=== PATIENT | male | born 1980 | race Caucasian/White ===

== ENCOUNTER 2018-05-04 12:43 | Emergency (ER) | payer OTHER, MEDICAID, SELFPAY ==
[2018-05-04 12:45] VITALS: BP 134/66; PULSE 183; RESP 32; O2SAT 94
--- NOTE | 2018-05-04 12:59 | ED.ARRPALP ---
HPI - Arrhythmia/Palpitations General Chief Complaint: Arrhythmia/Palpitations Stated Complaint: HARD TIME BREATHING Time Seen by Provider: 05/04/18 12:59 Source: patient Mode of arrival: ambulatory Limitations: no limitations History of Present Illness HPI narrative: 38-year-old male with history of Uitjt-Zfkbywzwe-Nnisq status post ablation presents to the emergency department complaining of shortness of breath for the past few days. He has had a few episodes of being quite dizzy but denies syncope. He denies any chest pain. He takes no medications status post ablation but admits he did not followup much after the procedure which was 2 years ago at [facility] complaint: rapid heart beat and heart racing Onset (ago): day(s) Duration: constant Severity: moderate Context: occurred during rest Arrhythmia history: history of ablation Associated symptoms: shortness of breath and near-syncope Related Data Previous Rx's Medication Instructions Recorded metoprolol tartrate 50 mg PO BID #60 tab 05/04/18 Allergies Allergy/AdvReac Type Severity Reaction Status Date / Time No Known Drug Allergies Allergy Verified 05/04/18 13:55 Review of Systems Review of Systems All systems reviewed & are unremarkable except as noted in HPI and below Constitutional Denies chills, Denies fever(s), Denies lethargy and Denies weakness Eyes Denies change in vision, Denies eye discharge, Denies irritation and Denies loss of vision ENT Ears, Nose, Mouth, and Throat: Denies change in voice, Denies neck pain and Denies sore throat Cardiovascular Denies chest pain, Denies irregular heart rhythm, Denies lightheadedness, Denies palpitations, Reports dyspnea, Denies dyspnea on exertion and Denies orthopnea Respiratory Denies cough, Reports dyspnea, Denies dyspnea on exertion and Denies wheezing Gastrointestinal Gastrointestinal: Denies abdominal pain, Denies change in bowel habits, Denies diarrhea, Denies nausea and Denies vomiting Genitourinary Denies hematuria, Denies flank pain, Denies urinary incontinence and Denies urinary urgency Musculoskeletal Denies neck pain Integumentary/Breasts Denies pruritus, Denies erythema, Denies rash and Denies wounds Neurologic Denies confusion, Denies loss of vision and Denies weakness Psychiatric Denies anxiety, Denies confusion, Denies depression, Denies homicidal ideation and Denies suicidal ideation Endocrine Denies palpitations Hematologic/Lymphatic Denies easy bruising Allergic/Immunologic Denies wheezing PFSH Social History Smoking Status: Current every day smoker Exam Narrative Exam Narrative: 38-year-old male in obvious stress Initial Vital Signs Initial Vital Signs: Vital Signs Pulse Rate 183 H 05/04/18 12:45 Respiratory Rate 32 H 05/04/18 12:45 Blood Pressure 134/66 H 05/04/18 12:45 Pulse Oximetry 94 05/04/18 12:45 Const General: cooperative, well developed and acute distress Nutritional Appearance: well nourished Orientation: alert, awake, oriented x3 and not confused HENMT Head: normocephalic and atraumatic Ears: external ears normal and TM's normal bilaterally Nose: external nose normal and No nasal discharge Face and sinus: sinuses nontender, face symmetric, no sinus tenderness and No dry mucous membranes Mouth: oral mucosae normal and moist mucous membranes Teeth and gingiva: dentition normal Throat: tonsils normal and uvula midline Neck Neck: normal visual inspection, trachea midline, No lymphadenopathy, No midline deformity and No JVD Lymphatic: No lymphedema Chest Chest: normal inspection of the chest Resp Effort & Inspection: normal respiratory effort, able to speak in complete sentences, no respiratory distress and no use of accessory muscles Auscultation: clear to auscultation bilaterally, no rales, no rhonchi and no wheezes Cardio Rate: tachycardic Rhythm: regular rhythm GI Inspection: non-distended Palpation: soft, no hepatosplenomegaly, No guarding, No pulsatile mass and No tender Auscultation: normal bowel sounds Skin General: no rashes or lesions noted, No jaundice and No petechiae Extrem General: full ROM, no clubbing, cyanosis or edema, no pedal edema and no calf tenderness Course Orders Ordered: ED Orders 05/04/18 13:00 XR chest 1V Stat EKG-12 Lead Stat 05/04/18 13:36 Basic Metabolic Panel Stat Complete Blood Count AUTO DIFF Stat Magnesium Stat Thyroid Stimulating Hormone Stat Troponin with CK Cardiac Panel Stat Discontinued Medications Amiodarone HCl/Dextrose (Nexterone) 150 mg in 100 mls @ 600 mls/hr IV NOW ONE; Protocol Stop: 05/04/18 13:11 Last Infusion: 05/04/18 13:55 Dose: 0 mls/hr Admin: 05/04/18 13:41 Dose: 600 mls/hr Sodium Chloride (Normal Saline 0.9%) 1,000 mls @ 150 mls/hr IV CONT MARVA Last Infusion: 05/04/18 16:00 Dose: 150 mls/hr Admin: 05/04/18 13:41 Dose: 150 mls/hr Metoprolol Tartrate (Lopressor) 25 mg PO NOW ONE Stop: 05/04/18 15:29 Last Admin: 05/04/18 15:37 Dose: 25 mg Reevaluation(s) Reevaluation #1: Patient initially taken into room 4 and connected to a monitor, I was immediately called to the bedside and requested patient be transferred to room 1 and connected to monitoring and evaluation advisor and pads. Amiodarone 150 mg was administered, modified Valsalva maneuver performed with amiodarone going patient had cardioversion to a sinus rhythm in the 110s to 120s and was completely asymptomatic at this point Consultations Consultation #1: Called to on-call Cardiology at [facility] whom was able to check his records and consult with the sanitary napkin machine tender of record from the ablation. They recommend initiation of metoprolol 25 mg p.o. b.i.d. and close follow-up with instructions to return for recurrent symptoms Vital Signs - 8 hr 05/04/18 12:45 05/04/18 14:11 05/04/18 15:00 Pulse Rate 183 H 76 115 H Respiratory Rate 32 H 21 18 Blood Pressure 134/66 H Blood Pressure [Right Arm] 117/69 112/60 Pulse Oximetry 94 100 99 05/04/18 15:30 Pulse Rate 113 H Respiratory Rate 18 Blood Pressure Blood Pressure [Right Arm] 132/82 H Pulse Oximetry 98 MDM - Arrhythmia/Palpitations Lab Data Result diagrams: 05/04/18 13:36 05/04/18 13:36 Lab Results 05/04/18 05/04/18 05/04/18 Range/Units 13:36 13:36 13:36 WBC 15.7 H (4.5-11.0) X10^3/uL RBC 5.00 (4.5-5.9) X10^6/uL Hgb 14.5 (13.5-17.5) g/dL Hct 43.1 (41-53) % MCV 86.2 (80-100) fL MCH 29.0 (26-34) PG MCHC 33.6 (30-36) % RDW 13.4 (11.6-14.8) % Plt Count 291 (150-400) X10^3/uL Neut % (Auto) 75.4 H (50-75) % Lymph % (Auto) 16.6 L (25-40) % Isabella % (Auto) 6.4 (3-14) % Eos % (Auto) 0.5 L (2-4) % Baso % (Auto) 1.1 (0-2) % Neut # (Auto) 87277 H (1178-7787) /uL Sodium 140 (137-145) mmol/L Potassium 4.1 (3.4-5.1) mmol/L Chloride 102 (98-107) mmol/L Carbon Dioxide 28 (22-32) mmol/L BUN 19 (9-20) mg/dL Creatinine 1.10 (0.66-1.25) mg/dL Estimated GFR > 60.0 (>60) mL/min BUN/Creatinine Ratio 17.3 (6-22) Glucose 114 H (70-100) mg/dL Calcium 8.7 (8.4-10.2) mg/dL Magnesium 1.8 (1.6-2.3) mg/dL Total Creatine Kinase 56 (55-170) U/L Troponin I < 0.012 (0.01-0.034) ng/mL TSH 1.60 (0.47-4.68) uIU/mL Imaging Data Chest x-ray: Attestation: I personally reviewed and interpreted this imaging study as follows: Radiologist's impression: PROCEDURE: XR CHEST 1V INDICATIONS: CP, SOB, palpitations, hx WPW TECHNIQUE: One view of the chest was acquired. COMPARISON: [facility], , XR CHEST 1 VIEW, 09/27/2017, 17:43. FINDINGS: Surgical changes and devices: None. Lungs and pleura: No pleural effusions or pneumothorax. Lungs are clear. Mediastinum: Mediastinal contours appear normal. Heart size is normal. Bones and chest wall: No suspicious bony lesions. Overlying soft tissues appear unremarkable. IMPRESSION: No acute cardiopulmonary disease process. Dictated by: Mandi Mckee MD, PhD on 05/04/2018 at 13:13 Approved by: Mandi Mckee MD, PhD on 05/04/2018 at 13:14 Discharge Plan Departure Patient Disposition: Home, Self-Care Clinical Impression: Xwsjx-Rhrafceqb-Dzywl (WPW) pattern Discharge Date/Time: 05/04/18 16:04 Interventions: ED Discharge Assessment Last Done: 05/04/18 16:01 Instructions: DI for Qdjtf-Jtlxzwkqo-Tksvn Syndrome Activity Restrictions/Additional Instructions: *You have been diagnosed with [ Lftas-Bmbgffjnf-Lwxui ] *What to do: *Take medications as directed, her prescription has been electronically transmitted to the [facility] [employer] at your request *Follow up with Dr. Perez at [facility] cardiology, call tomorrow for appointment *Return to ER if you should haveany new, worsening or concerning symptoms Prescriptions: New metoprolol tartrate 50 mg tablet 50 mg PO BID Qty: 60 RF: 0 Referrals: Luis F Perez MD [Physician] -
--- NOTE | 2018-05-04 13:36 | ED_ITS ---
HPI - Arrhythmia/Palpitations General Chief Complaint: Arrhythmia/Palpitations Stated Complaint: HARD TIME BREATHING Time Seen by Provider: 05/04/18 12:59 Source: patient Mode of arrival: ambulatory Limitations: no limitations History of Present Illness HPI narrative: 38-year-old male with history of Nsdev-Bdixswssj-Uegvr status post ablation presents to the emergency department complaining of shortness of breath for the past few days. He has had a few episodes of being quite dizzy but denies syncope. He denies any chest pain. He takes no medications status post ablation but admits he did not followup much after the procedure which was 2 years ago at [facility] complaint: rapid heart beat and heart racing Onset (ago): day(s) Duration: constant Severity: moderate Context: occurred during rest Arrhythmia history: history of ablation Associated symptoms: shortness of breath and near-syncope Related Data Previous Rx's Medication Instructions Recorded metoprolol tartrate 50 mg PO BID #60 tab 05/04/18 Allergies Allergy/AdvReac Type Severity Reaction Status Date / Time No Known Drug Allergies Allergy Verified 05/04/18 13:55 Review of Systems Review of Systems All systems reviewed & are unremarkable except as noted in HPI and below Constitutional Denies chills, Denies fever(s), Denies lethargy and Denies weakness Eyes Denies change in vision, Denies eye discharge, Denies irritation and Denies loss of vision ENT Ears, Nose, Mouth, and Throat: Denies change in voice, Denies neck pain and Denies sore throat Cardiovascular Denies chest pain, Denies irregular heart rhythm, Denies lightheadedness, Denies palpitations, Reports dyspnea, Denies dyspnea on exertion and Denies orthopnea Respiratory Denies cough, Reports dyspnea, Denies dyspnea on exertion and Denies wheezing Gastrointestinal Gastrointestinal: Denies abdominal pain, Denies change in bowel habits, Denies diarrhea, Denies nausea and Denies vomiting Genitourinary Denies hematuria, Denies flank pain, Denies urinary incontinence and Denies urinary urgency Musculoskeletal Denies neck pain Integumentary/Breasts Denies pruritus, Denies erythema, Denies rash and Denies wounds Neurologic Denies confusion, Denies loss of vision and Denies weakness Psychiatric Denies anxiety, Denies confusion, Denies depression, Denies homicidal ideation and Denies suicidal ideation Endocrine Denies palpitations Hematologic/Lymphatic Denies easy bruising Allergic/Immunologic Denies wheezing PFSH Social History Smoking Status: Current every day smoker Exam Narrative Exam Narrative: 38-year-old male in obvious stress Initial Vital Signs Initial Vital Signs: Vital Signs Pulse Rate 183 H 05/04/18 12:45 Respiratory Rate 32 H 05/04/18 12:45 Blood Pressure 134/66 H 05/04/18 12:45 Pulse Oximetry 94 05/04/18 12:45 Const General: cooperative, well developed and acute distress Nutritional Appearance: well nourished Orientation: alert, awake, oriented x3 and not confused HENMT Head: normocephalic and atraumatic Ears: external ears normal and TM's normal bilaterally Nose: external nose normal and No nasal discharge Face and sinus: sinuses nontender, face symmetric, no sinus tenderness and No dry mucous membranes Mouth: oral mucosae normal and moist mucous membranes Teeth and gingiva: dentition normal Throat: tonsils normal and uvula midline Neck Neck: normal visual inspection, trachea midline, No lymphadenopathy, No midline deformity and No JVD Lymphatic: No lymphedema Chest Chest: normal inspection of the chest Resp Effort & Inspection: normal respiratory effort, able to speak in complete sentences, no respiratory distress and no use of accessory muscles Auscultation: clear to auscultation bilaterally, no rales, no rhonchi and no wheezes Cardio Rate: tachycardic Rhythm: regular rhythm GI Inspection: non-distended Palpation: soft, no hepatosplenomegaly, No guarding, No pulsatile mass and No tender Auscultation: normal bowel sounds Skin General: no rashes or lesions noted, No jaundice and No petechiae Extrem General: full ROM, no clubbing, cyanosis or edema, no pedal edema and no calf tenderness Course Orders Ordered: ED Orders 05/04/18 13:00 XR chest 1V Stat EKG-12 Lead Stat 05/04/18 13:36 Basic Metabolic Panel Stat Complete Blood Count AUTO DIFF Stat Magnesium Stat Thyroid Stimulating Hormone Stat Troponin with CK Cardiac Panel Stat Discontinued Medications Amiodarone HCl/Dextrose (Nexterone) 150 mg in 100 mls @ 600 mls/hr IV NOW ONE; Protocol Stop: 05/04/18 13:11 Last Infusion: 05/04/18 13:55 Dose: 0 mls/hr Admin: 05/04/18 13:41 Dose: 600 mls/hr Sodium Chloride (Normal Saline 0.9%) 1,000 mls @ 150 mls/hr IV CONT MARVA Last Infusion: 05/04/18 16:00 Dose: 150 mls/hr Admin: 05/04/18 13:41 Dose: 150 mls/hr Metoprolol Tartrate (Lopressor) 25 mg PO NOW ONE Stop: 05/04/18 15:29 Last Admin: 05/04/18 15:37 Dose: 25 mg Reevaluation(s) Reevaluation #1: Patient initially taken into room 4 and connected to a monitor , I was immediately called to the bedside and requested patient be transferred to room 1 and connected to nurse monitoring and pads. Amiodarone 150 mg was administered, modified Valsalva maneuver performed with amiodarone going patient had cardioversion to a sinus rhythm in the 110s to 120s and was completely asymptomatic at this point Consultations Consultation #1: Called to on-call Cardiology at [facility] whom was able to check his records and consult with the maintenance craftsman of record from the ablation. They recommend initiation of metoprolol 25 mg p.o. b.i.d. and close follow-up with instructions to return for recurrent symptoms Vital Signs - 8 hr 05/04/18 12:45 05/04/18 14:11 05/04/18 15:00 Pulse Rate 183 H 76 115 H Respiratory Rate 32 H 21 18 Blood Pressure 134/66 H Blood Pressure [Right Arm] 117/69 112/60 Pulse Oximetry 94 100 99 05/04/18 15:30 Pulse Rate 113 H Respiratory Rate 18 Blood Pressure Blood Pressure [Right Arm] 132/82 H Pulse Oximetry 98 MDM - Arrhythmia/Palpitations Lab Data Result diagrams: 05/04/18 13:36 05/04/18 13:36 Lab Results 05/04/18 05/04/18 05/04/18 Range/Units 13:36 13:36 13:36 WBC 15.7 H (4.5-11.0) X10^3/uL RBC 5.00 (4.5-5.9) X10^6/uL Hgb 14.5 (13.5-17.5) g/dL Hct 43.1 (41-53) % MCV 86.2 (80-100) fL MCH 29.0 (26-34) PG MCHC 33.6 (30-36) % RDW 13.4 (11.6-14.8) % Plt Count 291 (150-400) X10^3/uL Neut % (Auto) 75.4 H (50-75) % Lymph % (Auto) 16.6 L (25-40) % [place] % (Auto) 6.4 (3-14) % Eos % (Auto) 0.5 L (2-4) % Baso % (Auto) 1.1 (0-2) % Neut # (Auto) 90089 H (7674-7148) /uL Sodium 140 (137-145) mmol/L Potassium 4.1 (3.4-5.1) mmol/L Chloride 102 (98-107) mmol/L Carbon Dioxide 28 (22-32) mmol/L BUN 19 (9-20) mg/dL Creatinine 1.10 (0.66-1.25) mg/dL Estimated GFR > 60.0 (>60) mL/min BUN/Creatinine Ratio 17.3 (6-22) Glucose 114 H (70-100) mg/dL Calcium 8.7 (8.4-10.2) mg/dL Magnesium 1.8 (1.6-2.3) mg/dL Total Creatine Kinase 56 (55-170) U/L Troponin I < 0.012 (0.01-0.034) ng/mL TSH 1.60 (0.47-4.68) uIU/mL Imaging Data Chest x-ray: Attestation: I personally reviewed and interpreted this imaging study as follows: Radiologist's impression: PROCEDURE: XR CHEST 1V INDICATIONS: CP, SOB, palpitations, hx WPW TECHNIQUE: One view of the chest was acquired. COMPARISON: [facility], , XR CHEST 1 VIEW, 09/27/2017, 17:43. FINDINGS: Surgical changes and devices: None. Lungs and pleura: No pleural effusions or pneumothorax. Lungs are clear. Mediastinum: Mediastinal contours appear normal. Heart size is normal. Bones and chest wall: No suspicious bony lesions. Overlying soft tissues appear unremarkable. IMPRESSION: No acute cardiopulmonary disease process. Dictated by: Mandi Mckee MD, PhD on 05/04/2018 at 13:13 Approved by: Mandi Mckee MD, PhD on 05/04/2018 at 13:14 Discharge Plan Departure Patient Disposition: Home, Self-Care Clinical Impression: Bohry-Msmwdmubu-Gfuye (WPW) pattern Discharge Date/Time: 05/04/18 16:04 Interventions: ED Discharge Assessment Last Done: 05/04/18 16:01 Instructions: DI for Kyqbx-Atzisungn-Vptbj Syndrome Activity Restrictions/Additional Instructions: *You have been diagnosed with [ Rrbiz-Ojmbjuphl-Kbgfw ] *What to do: *Take medications as directed, her prescription has been electronically transmitted to the [facility] at your request *Follow up with Dr. Perez at [facility] cardiology, call tomorrow for appointment *Return to ER if you should haveany new, worsening or concerning symptoms Prescriptions: New metoprolol tartrate 50 mg tablet 50 mg PO BID Qty: 60 RF: 0 Referrals: Luis F Perez MD [Physician] -
[2018-05-04] MEDS: SODIUM CHLORIDE 0.9% 1,000 ML 150 ML IV (13:41)
[2018-05-04] MEDS: AMIODARONE 150 MG/100 ML PIGGYBACK 600 MG IV (13:41)
[2018-05-04 13:46] LABS: Add Manual Diff / Slide Review NO; Basophils Percent Auto 1.1 % (0-2); Eosinophils Percent Auto 0.5 % (2-4); Hematocrit 43.1 % (41-53); Hemoglobin 14.5 g/dL (13.5-17.5); Lymphocytes Percent Auto 16.6 % (25-40); Mean Corpuscular HGB Conc 33.6 % (30-36); Mean Corpuscular Volume 86.2 fL (80-100); Monocytes Percent Auto 6.4 % (3-14); Neutrophils Absolute Auto 11800 /uL (3000-5900); Neutrophils Percent Auto 75.4 % (50-75); Platelet Count 291 X10^3/uL (150-400); Red Cell Distribution Width 13.4 % (11.6-14.8); White Blood Cell Count 15.7 X10^3/uL (4.5-11.0)
[2018-05-04 13:54] LABS: BUN Creatinine Ratio 17.3 (6-22); Blood Urea Nitrogen 19 mg/dL (9-20); Calcium 8.7 mg/dL (8.4-10.2); Carbon Dioxide 28 mmol/L (22-32); Chloride 102 mmol/L (98-107); Creatine Kinase 56 U/L (55-170); Estimated Glomerular Filt Rate > 60.0 mL/min (>60); Glucose 114 mg/dL (70-100); HEMOLYSIS 22 (0-50); Magnesium 1.8 mg/dL (1.6-2.3); Potassium 4.1 mmol/L (3.4-5.1); Sodium 140 mmol/L (137-145)
[2018-05-04 14:06] LABS: Troponin I < 0.012 ng/mL (0.01-0.034)
[2018-05-04 14:11] VITALS: BP 117/69; PULSE 76; RESP 21; O2SAT 100
[2018-05-04 15:00] VITALS: BP 112/60; PULSE 115; RESP 18; O2SAT 99
[2018-05-04 15:30] VITALS: BP 132/82; PULSE 113; RESP 18; O2SAT 98
[2018-05-04] MEDS: METOPROLOL 25 MG TABLET PO (15:37)
== END 2018-05-04 16:04 | disposition home or self-care (01) ==
PROVIDERS: Emergency Provider Emergency Medicine
DX: I45.6 Pre-excitation syndrome (principal)
CPT/HCPCS: 36591; 71045; 80048; 82550; 82553; 83735; 84443; 84484; 85025; 93005; 93041; 96361; 96374; 99284; 99285; J0282